=== PATIENT | male | born 1945 | race African-American/Black ===

== ENCOUNTER 2017-07-15 11:21 | Emergency (ER) | payer MEDICARE, OTHER ==
[2017-07-15 12:09] LABS: POC GLUCOSE 302 mg/dL (70-99)
[2017-07-15 12:20] LABS: ADD MAN DIFF? NO
[2017-07-15] MEDS: IV NORMAL SALINE 500ML BAG 500 ML IV (12:21)
[2017-07-15 12:23] LABS: BASO % 1 % (0-3); EOS # 0.1 x10^3/uL (0.0-0.7); EOS % 2 % (0-3); HEMATOCRIT 41.3 % (39.0-53.0); HEMOGLOBIN 13.6 g/dL (13.0-17.5); LYMPH # 1.9 x10^3/uL (1.0-4.8); LYMPH % 38 % (24-48); MEAN CORPUSCULAR HEMOGLOBIN 28 pg (25-35); MEAN CORPUSCULAR HGB CONC 33 g/dL (31-37); MEAN CORPUSCULAR VOLUME 84 fL (79-100); MONO # 0.4 x10^3/uL (0.0-1.1); MONO % 7 % (0-9); NEUT # 2.5 x10^3uL (1.8-7.7); NEUT % 52 % (31-73); PLATELET COUNT 170 x10^3/uL (140-400); RED BLOOD COUNT 4.89 x10^6/uL (4.30-5.70); RED CELL DISTRIBUTION WIDTH 15.6 % (11.5-14.5); WHITE BLOOD COUNT 4.9 x10^3/uL (4.0-11.0)
[2017-07-15 12:34] LABS: INR 1.1 (0.8-1.1); PARTIAL THROMBOPLASTIN TIME 32 SEC (24-38)
[2017-07-15 12:35] LABS: ANION GAP 6 (6-14); BLOOD UREA NITROGEN 16 mg/dL (8-26); BUN/CREATININE RATIO 11 (6-20); CALCIUM 9.3 mg/dL (8.5-10.1); CARBON DIOXIDE 31 mmol/L (21-32); CHLORIDE 101 mmol/L (98-107); CREATININE 1.4 mg/dL (0.7-1.3); GFR 60.6; GLUCOSE 320 mg/dL (70-99); POTASSIUM 5.1 mmol/L (3.5-5.1); SODIUM 138 mmol/L (136-145)
[2017-07-15 12:41] LABS: ALBUMIN 3.6 g/dL (3.4-5.0); ALK PHOS 71 U/L (46-116); ALT (SGPT) 18 U/L (16-63); AST (SGOT) 17 U/L (15-37); TOTAL BILIRUBIN 0.8 mg/dL (0.2-1.0); TOTAL PROTEIN 7.3 g/dL (6.4-8.2)
[2017-07-15 12:43] LABS: TROPONINI < 0.017 ng/mL (0.000-0.055)
[2017-07-15 12:49] LABS: NT-PRO BNP 332 pg/mL (0-124)
== END 2017-07-15 13:57 | disposition home or self-care (01) ==
LOC: ER 11:21
DX: I10 Essential (primary) hypertension (principal); R42 Dizziness and giddiness; E11.65 Type 2 diabetes mellitus with hyperglycemia; I25.2 Old myocardial infarction; Z95.5 Presence of coronary angioplasty implant and graft; Z91.013 Allergy to seafood
CPT/HCPCS: 36415; 70450; 71045; 80053; 82962; 83880; 84484; 85025; 85610; 85730; 93005; 96360; 99285-25; J7040